=== PATIENT | male | born 1960 ===

== ENCOUNTER 2024-08-03 06:16 | Day surgery (SDC) | payer BC, SELFPAY ==
[2024-08-03 11:26] LABS: Glucose - Point of Care 115 mg/dl (70-99)
== END 2024-08-03 13:10 | disposition home or self-care (01) ==
LOC: GI 06:16
PROVIDERS: ATTENDING PHYSICIAN Surgery; FAMILY PHYSICIAN Family Medicine
DX: Z12.11 Encounter for screening for malignant neoplasm of colon (principal); K57.30 Diverticulosis of large intestine without perforation or abscess without bleeding; K64.9 Unspecified hemorrhoids; K52.9 Noninfective gastroenteritis and colitis, unspecified; K63.3 Ulcer of intestine; K52.89 Other specified noninfective gastroenteritis and colitis; Z86.0100 Personal history of colon polyps, unspecified
CPT/HCPCS: 45380; 88305; 82962